=== PATIENT | male | born 1990 | race Hispanic/Latino ===

== ENCOUNTER 2025-02-26 10:19 | Emergency (ER) | payer SELFPAY ==
[2025-02-26] MEDS ORDERED: Ondansetron PF 4 MG/2 ML Vial ONE ×2 (10:45→13:04)
[2025-02-26 11:07] LABS: Acetaminophen Less than 10 mcg/mL (Less than 10); Salicylate Less than 8.0 mg/dL (Less than 8.0)
[2025-02-26 11:09] LABS: ALT (SGPT) 28 U/L (Less than 45); AST (SGOT) 22 U/L (11-34); Albumin 5.4 g/dL (3.1-4.5); Alkaline Phosphatase 86 U/L (40-110); Anion Gap 28 mmol/L (10-20); BUN (Urea Nitrogen) 11 mg/dL (8.9-20.6); Bilirubin, Total 0.6 mg/dL (0.3-1.2); Calc. Creatinine Clearance 0 mL/min (70-130); Calcium 9.7 mg/dL (7.8-10.44); Carbon Dioxide 15 mmol/L (22-29); Chloride 105 mmol/L (98-107); Globulin 3.6 g/dL (2.4-3.5); Glucose 128 mg/dL (70-105); Potassium 4.3 mmol/L (3.5-5.1); Sodium 144 mmol/L (136-145)
[2025-02-26 11:12] LABS: Troponin I 0.036 ng/mL (< 0.028)
[2025-02-26 11:17] LABS: Hematocrit 50.2 % (42.0-52.0); Hemoglobin 17.8 g/dL (14.0-18.0); Mean Corpuscular Hemoglobin 30.6 pg (27.0-31.0); Mean Corpuscular Volume 86.7 fl (78.0-98.0); Platelet Count 459 10x3/uL (130-400); Red Blood Cell (RBC) Count 5.80 mill/uL (4.70-6.10); White Blood Cell (WBC) Count 11.4 10x3/uL (4.8-10.8)
[2025-02-26 11:22] LABS: MDiff Complete? YES; Platelet Adequacy Comment Appears Increased
== END 2025-02-26 15:00 | disposition short-term general hospital (02) ==
LOC: BURERS 10:19 → EEVIPCON 10:19 → BURERS 15:00
DX: T60.3X2A Toxic effect of herbicides and fungicides, intentional self-harm, initial encounter (principal); E87.20 Acidosis, unspecified
CPT/HCPCS: 71045; 80053; 80307; 84484; 85025; 93005; 94760; 96361; 96365; 96375; 96376; J2405; J2550